=== PATIENT | male | born 1975 | race Caucasian/White ===

== ENCOUNTER 2016-08-10 01:38 | Inpatient (IN) | payer OTHER ==
--- NOTE | 2016-08-10 01:51 | PDOC ---
History of Present Illness - General History Source: Patient Exam Limitations: No Limitations - History of Present Illness Initial Comments: 08/10/16 02:07 The patient is a 40 year old male, with a significant past medical history of kidney stones and migraines, who presents to the emergency department complaining of back pain for approximately 4 days. The patient reports his pain has been going on for several days, but this morning when he woke up his pain was severe and localized to the left flank region. He reports his pain radiates into his left abdomen. He reports associated nausea, but denies any vomiting, diarrhea, or constipation. The patient reports he has a history of UTIs, his last being many years ago. He reports a history of kidney stones. He states his pain today is more similar to his kidney stone pain. He denies any dysuria, hematuria, frequency, or urgency. He denies any recent travel or heavy lifting. Allergies: Penicillins, sumatriptan, sumatriptan succinate Past Surgical History: Double hernia repair, Appendectomy (1997) Social History: Occasional smoker. No ETOH or drug use. PCP: Dr. Galina Delgado <Marina Carpenter - Last Filed: 08/10/16 06:11> - General History Source: Patient <[email or web address] aguirre - Last Filed: 08/13/16 19:52> - General Chief Complaint: Back Pain Stated Complaint: PAIN/LT SIDE Time Seen by Provider: 08/10/16 01:49 Past History <Marina Carpenter - Last Filed: 08/10/16 06:11> - Past Medical History Kidney Stones: Yes - Surgical History Abdominal Surgery: Yes (DOUBLE HERNIA REPAIR) Appendectomy: Yes (1987) - Immunization History Immunization Up to Date: Yes - Psycho/Social/Smoking Cessation Hx Anxiety: No Suicidal Ideation: No Smoking Status: Yes Smoking History: Never smoked Have you smoked in the past 12 months: No Number of Cigarettes Smoked Daily: 20 Cigars Per Day: 0 Information on smoking cessation initiated: No Hx Alcohol Use: No Drug/Substance Use Hx: No Substance Use Type: None <Patrick Dumas - Last Filed: 08/13/16 19:52> - Past Medical History Allergies/Adverse Reactions: Allergies Allergy/AdvReac Type Severity Reaction Status Date / Time Penicillins Allergy Verified 08/10/16 01:44 sumatriptan [From Imitrex] Allergy Verified 08/10/16 01:44 sumatriptan succinate Allergy Verified 08/10/16 01:44 [From Imitrex] Home Medications: Ambulatory Orders Tramadol HCl 50 mg PO Q4HWA #20 tablet 08/04/14 Review of Systems - Review of Systems Able to Perform ROS?: Yes Comments:: 08/10/16 02:08 CONSTITUTIONAL: Absent: fever, no chills, no fatigue EYES: Absent: visual changes ENT: Absent: ear pain, no sore throat CARDIOVASCULAR: Absent: chest pain, no palpitations RESPIRATORY: Absent: cough, no SOB GI: present: +left-sided abdominal pain Absent: no nausea, no vomiting, no constipation, no diarrhea GENITOURINARY: Present: +left flank pain Absent: dysuria, no frequency, no hematuria MUSCULOSKELETAL: Present: +back pain Absent: no arthralgia, no myalgia SKIN: Absent: rash NEURO: Absent: headache <Marina Carpenter - Last Filed: 08/10/16 06:11> *Physical Exam - Vital Signs Last Vital Signs Temp Pulse Resp BP Pulse Ox 98.6 F 89 22 138/64 98 08/10/16 01:44 08/10/16 01:44 08/10/16 01:44 08/10/16 01:44 08/10/16 01:44 - Physical Exam Comments: 08/10/16 02:09 GENERAL: Moderate distress. Well-appearing, well-nourished. HEENT: Normocephalic, atraumatic. PERRL, EOM intact. CARDIOVASCULAR: Normal S1, S2. Regular rate and rhythm. PULMONARY: Clear to auscultation bilaterally. ABDOMEN: Soft, non-distended, non-tender. MUSCULOSKELTAL: Mild left flank tenderness. EXTREMITIES: Normal ROM in all four extremities. No gross deformities. SKIN: Warm, dry. No rash NEUROLOGICAL: No focal neurological deficits. <Marina Carpenter - Last Filed: 08/10/16 06:11> - Vital Signs Last Vital Signs Temp Pulse Resp BP Pulse Ox 98.6 F 89 22 138/64 98 08/10/16 01:44 08/10/16 01:44 08/10/16 01:44 08/10/16 01:44 08/10/16 01:44 <Patrick Dumas - Last Filed: 08/13/16 19:52> Heart Score/ECG Review - ECG Intrepretation Comment:: 08/10/16 06:07 Vent. Rate: 61 bpm IMPRESSION: Normal sinus rhythm. Possible Anterior infarct. <Marina Carpenter - Last Filed: 08/10/16 06:11> ED Treatment Course - LABORATORY CBC & Chemistry Diagram: 08/10/16 01:53 08/10/16 01:53 - RADIOLOGY Radiograph Interpretation: 08/10/16 03:46 EXAM: CT Abdomen and Pelvis INTERPRETED BY: Dr. Sun REVIEWED BY: Dr. Dumas IMPRESSION: Obstructing calculus in the distal left ureter. <Marina Carpenter - Last Filed: 08/10/16 06:11> - LABORATORY CBC & Chemistry Diagram: 08/11/16 07:00 08/11/16 07:00 - RADIOLOGY Radiology Studies Ordered: Category Date Time Status SPIRAL- RENAL-STONE CT [CT] Stat CT Scan 08/10/16 01:46 Ordered <Patrick Dumas - Last Filed: 08/13/16 19:52> Medical Decision Making - Medical Decision Making 08/10/16 05:19 First call placed to Dr. Delgado at 05:20. Awaiting call back from Dr. Holt. Case discussed with Dr. Holt at 06:00. <Marina Carpenter - Last Filed: 08/10/16 06:11> - Medical Decision Making 08/13/16 19:51 Dr. Dumas: The scribe's documentation has been prepared under my direction and personally reviewed by me in its entirery. I confirm that the note above accurately reflects all work, treatment, procedures, and medical decision making performed by me. <Patrick Dumas - Last Filed: 08/13/16 19:52> *DC/Admit/Observation/Transfer - Attestations Scribe Attestion: 08/10/16 02:09 Documentation prepared by Marina Carpenter, acting as medical services coordinator for Patrick Dumas DO. <Marina Carpenter - Last Filed: 08/10/16 06:11> - Discharge Dispostion Admit: Yes <Patrick Dumas - Last Filed: 08/13/16 19:52> Diagnosis at time of Disposition: Renal colic on left side, Obstruction of kidney - Discharge Dispostion Disposition: HOME Condition at time of disposition: Stable - Referrals
[2016-08-10] MEDS ORDERED: SODIUM CHLORIDE 1,000 ML IV STA (01:52)
[2016-08-10] MEDS ORDERED: KETOROLAC TROMETHAMINE 30 MG/1 ML VIAL IVPUSH ONE (01:52)
[2016-08-10] MEDS ORDERED: ONDANSETRON 4 MG/2 ML VIAL IVPUSH STA (01:52)
[2016-08-10] MEDS ORDERED: ONDANSETRON 4 MG/2 ML VIAL ONE (01:58)
[2016-08-10] MEDS ORDERED: KETOROLAC TROMETHAMINE 30 MG/1 ML VIAL ONE (01:58)
[2016-08-10 02:17] LABS: URINE APPEARANCE CLEAR; URINE BILIRUBIN NEGATIVE (NEGATIVE); URINE COLOR LTYELLOW; URINE GLUCOSE (UA) NEGATIVE (NEGATIVE); URINE KETONE NEGATIVE (NEGATIVE); URINE LEUK ESTERASE NEGATIVE (NEGATIVE); URINE NITRITE NEGATIVE (NEGATIVE); URINE PROTEIN NEGATIVE (NEGATIVE); URINE UROBILINOGEN NEGATIVE E.U./dl (0.2-1.0)
[2016-08-10 02:21] LABS: URINE BLOOD 1+ (NEGATIVE)
[2016-08-10 02:22] LABS: URINE BACTERIA RARE /hpf (NONE SEEN); URINE RBC 24 /hpf (0-3); URINE WBC 1 /hpf (3-5)
[2016-08-10] MEDS ORDERED: HYDROmorphone HCL CARPU-JECT 1 MG/1 ML DISP.SYRIN IVPUSH ONE ×2 (02:23→04:08)
[2016-08-10] MEDS ORDERED: HYDROmorphone HCL CARPU-JECT 1 MG/1 ML DISP.SYRIN ONE ×2 (02:23→04:07)
[2016-08-10 02:29] LABS: BASOPHIL 0.6 % (0-2.0); EOSINOPHIL 2.9 % (0-4.5); MCH 28.9 pg (25.7-33.7); MCHC 33.5 g/dl (32.0-35.9); MEAN CELL VOLUME 86.2 fl (80-96); MEAN PLT VOLUME 9.2 fl (7.5-11.1); NEUTROPHILS 42.5 % (42.8-82.8); PLATELET COUNT 174 K/MM3 (134-434); RDW 13.3 % (11.9-15.9); WHITE BLOOD COUNT 10.6 K/mm3 (4.0-10.0)
[2016-08-10 02:43] LABS: ALBUMIN 3.7 g/dl (3.4-5.0); ANION GAP 10 (8-16); CALCIUM 8.5 mg/dL (8.5-10.1); CO2 26 mmol/L (21-32); CREATININE 0.9 mg/dL (0.7-1.3); GLUCOSE,RANDOM 89 mg/dL (74-106); SGOT/AST 23 U/L (15-37); SGPT/ALT 33 U/L (12-78)
[2016-08-10 02:45] LABS: ALK PHOS 92 U/L (45-117); BILIRUBIN,TOTAL 0.5 mg/dL (0.2-1.0); TOT PROT 6.7 g/dl (6.4-8.2)
[2016-08-10] MEDS ORDERED: morphine CARPU-JECT 2 MG/1 ML DISP.SYRIN IVPUSH PRN (09:29)
[2016-08-10] MEDS ORDERED: ACETAMINOPHEN 325 MG TABLET (FP) PO PRN (09:29)
[2016-08-10] MEDS ORDERED: ONDANSETRON 4 MG/2 ML VIAL IVPB PRN (09:29)
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
[2016-08-10] MEDS: D5-1/2NS+20 MEQ KCL - 1,000 ML IV SCH ×2 (10:21→20:47)
[2016-08-10] MEDS ORDERED: IBUPROFEN 600 MG TABLET (FP) PO ONE ×2 (11:57→11:59)
[2016-08-10] MEDS ORDERED: IBUPROFEN 600 MG TABLET (FP) PO PRN (12:05)
--- NOTE | 2016-08-10 14:18 | EKG ---
Test Reason : Blood Pressure : / mmHG Vent. Rate : 061 BPM Atrial Rate : 061 BPM P-R Int : 156 ms QRS Dur : 098 ms QT Int : 416 ms P-R-T Axes : 049 063 065 degrees QTc Int : 418 ms NORMAL SINUS RHYTHM POSSIBLE ANTERIOR INFARCT , AGE UNDETERMINED ABNORMAL ECG NO PREVIOUS ECGS AVAILABLE Confirmed by BIA QUINONES MD ([id number]) on 08/10/2016 2:18:10 PM Referred By: Confirmed By:BIA QUINONES MD
[2016-08-10 16:53] VITALS: BMI 43.6
[2016-08-11] MEDS: D5-1/2NS+20 MEQ KCL - 1,000 ML IV SCH (06:21)
[2016-08-11 08:04] LABS: BASOPHIL 0.5 % (0-2.0); EOSINOPHIL 3.9 % (0-4.5); MCH 29.7 pg (25.7-33.7); MCHC 34.6 g/dl (32.0-35.9); MEAN PLT VOLUME 8.7 fl (7.5-11.1); NEUTROPHILS 59.2 % (42.8-82.8); PLATELET COUNT 152 K/MM3 (134-434); RDW 13.1 % (11.9-15.9)
[2016-08-11 08:11] LABS: ANION GAP 7 (8-16); CALCIUM 8.2 mg/dL (8.5-10.1); CO2 29 mmol/L (21-32); CREATININE 0.7 mg/dL (0.7-1.3); GLUCOSE,RANDOM 107 mg/dL (74-106)
--- NOTE | 2016-08-11 10:51 | DS ---
Physical Examination Vital Signs: Vital Signs Temperature 98.4 F 08/11/16 06:00 Pulse Rate 66 08/11/16 06:00 Respiratory Rate 18 08/11/16 06:00 Blood Pressure 126/70 08/11/16 06:00 O2 Sat by Pulse Oximetry (%) 95 08/10/16 15:00 Labs: CBC, BMP 08/11/16 07:00 08/11/16 07:00 Discharge Summary Reason For Visit: OBSTRUCTIVE KIDNEY STONE Current Active Problems Obstruction of kidney (Acute) Renal colic on left side (Acute) Condition: Stable - Instructions Referrals: Galina Delgado MD [Primary Care Provider] - - Home Medications Comprehensive Discharge Medication List: Ambulatory Orders Bismuth Subsalicylate [Kaopectate] 262 mg PO DAILY 08/03/14 Tramadol HCl 50 mg PO Q4HWA #20 tablet 08/04/14
[2016-08-11 11:26] VITALS: BP 143/76; PULSE 74; TEMP 98.1
== END 2016-08-11 11:06 | disposition home or self-care (01) | DRG 700 ==
LOC: JER 01:38 → JERBED 05:44 → UNDOADMIN 05:47 → J5S 14:34
PROVIDERS: ADMIT Internal Medicine; ATTEND Internal Medicine
DX: N28.89 Other specified disorders of kidney and ureter (principal); N23 Unspecified renal colic
CPT/HCPCS: 36415; 71010-TC; 74176; 80048; 80053; 81003; 81015; 85025; 87086; 93005; 93010; 99285-25

== ENCOUNTER 2017-10-30 08:44 | Emergency (ER) | payer OTHER ==
[2017-10-30 08:55] VITALS: BP 131/83; PULSE 77; TEMP 99.2; BMI 36.6
[2017-10-30] MEDS ORDERED: BACITRACIN 15 GM TUBE TOPICAL OINTMENT ONE (09:17)
[2017-10-30] MEDS ORDERED: DIPHTH,PERTUSS(ACELL),TET 0.5 ML DISP.SYRIN IM ONE (09:25)
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
[2017-10-30] MEDS ORDERED: BACITRACIN 15 GM TUBE TOPICAL OINTMENT TP ONE (09:33)
== END 2017-10-30 09:35 | disposition home or self-care (01) ==
LOC: JERFT 08:44
PROC: 3E0234Z Introduction of Serum, Toxoid and Vaccine into Muscle, Percutaneous Approach (ICD-10-PCS; principal; 2017-10-30)
DX: S50.872A Other superficial bite of left forearm, initial encounter (principal); S50.871A Other superficial bite of right forearm, initial encounter; Y04.1XXA Assault by human bite, initial encounter; Y93.89 Activity, other specified; Y92.198 Other place in other specified residential institution as the place of occurrence of the external cause; Y99.0 Civilian activity done for income or pay
CPT/HCPCS: 90715; 99281-25

== ENCOUNTER 2018-10-27 12:38 | Emergency (ER) | payer OTHER ==
[2018-10-27 12:43] VITALS: BP 132/89; PULSE 86; TEMP 98.5; BMI 38.7
--- NOTE | 2018-10-27 13:34 | PDOC ---
History of Present Illness - General Chief Complaint: Rectal Bleed Stated Complaint: ABD PAIN/ BLOOD IN STOOL - History of Present Illness Initial Comments: 10/27/18 14:35 42 y/o/m with PMHx of hemorrhoids here for abd pain and blood in his stool. He states he has had intermittent abd pain for the last 3-4 weeks that temporarily improves with bowel movements. He states that for the last 2 days he has had increased blood in his stool and he has noticed blood clots when wiping. He has had hemorrhoids since his teens but they have worsened over the last year. He states his pain is currently a 8/10. When he has bowel movements he does have to strain and feels lightheaded. He had an additional episode of lightheadedness while sitting in his car and he felt dizzy and felt his heart racing but this episode self resolved. He has not had any additional similar episodes. He has been taking Ibuprofen for his abdominal pain with improvement and applies lidocaine cream to his hemorrhoids which improves his pain as well. His grandmother was diagnosed with colon cancer at age 41. He had a colonoscopy and endoscopy at age 35 which were negative and another colonoscopy 2 years ago which was negative. He is not followed by a GI doctor and does not recall the name of the doctor who did his colonoscopy and endoscopy. He denies any chest pain, SOB, nausea, vomiting, headache, or other symptoms. Social Hx: past history of 1 pack per day tobacco use, quit 1 month ago, now admits to vaping. denies alcohol and other illicit drug use. Surg Hx: appendectomy, tonsillectomy in his teens Medical Hx: HDL, anxiety Family Hx: grandmother diagnosed with colon cancer at age 41 Medications: Lipitor, Paxil Past History - Past Medical History Allergies/Adverse Reactions: Allergies Allergy/AdvReac Type Severity Reaction Status Date / Time Penicillins Allergy Verified 10/27/18 12:40 sumatriptan [From Imitrex] Allergy Verified 10/27/18 12:40 sumatriptan succinate Allergy Verified 10/27/18 12:40 [From Imitrex] Home Medications: Ambulatory Orders Ibuprofen 600 mg PO Q8H PRN #12 tablet 10/30/17 Sulfamethoxazole/Trimethoprim [Bactrim Ds Tablet] 1 each PO BID 5 Days #10 tablet 10/30/17 Lidocaine 2% Jelly [Xylocaine 2% Jelly -] 1 applic TP DAILY #1 tube 10/27/18 COPD: No DVT: No Kidney Stones: Yes - Surgical History Abdominal Surgery: Yes (DOUBLE HERNIA REPAIR) Appendectomy: Yes (1987) - Immunization History Immunization Up to Date: Yes - Suicide/Smoking/Psychosocial Hx Smoking Status: Yes Smoking History: Former smoker Have you smoked in the past 12 months: Yes Number of Cigarettes Smoked Daily: 15 Cigars Per Day: 0 Information on smoking cessation initiated: Yes 'Breaking Loose' booklet given: 10/30/17 Hx Alcohol Use: No Drug/Substance Use Hx: No Substance Use Type: None Hx Substance Use Treatment: No Review of Systems - Review of Systems Constitutional: No: Chills, Weakness HEENTM: No: Blurred Vision, Nose Congestion Respiratory: No: Cough, Shortness of Breath Cardiac (ROS): Yes: Lightheadedness. No: Chest Pain, Palpitations ABD/GI: Yes: Blood Streaked Bowels, Diarrhea, Abdominal cramping, Other ( increased urgency for bowel movements). No: Abdominal Distended, Constipated, Nausea, Vomiting : No: Dysuria, Hematuria Musculoskeletal: No: Back Pain Integumentary: No: Flushing, Rash Neurological: No: Headache, Numbness, Dizziness Psychiatric: Yes: Anxiety *Physical Exam - Vital Signs Last Vital Signs Temp Pulse Resp BP Pulse Ox 98.5 F 86 18 132/89 99 10/27/18 12:41 10/27/18 12:41 10/27/18 12:41 10/27/18 12:41 10/27/18 12:41 - Physical Exam General Appearance: Yes: Mild Distress HEENT: positive: EOMI Neck: positive: Supple. negative: Tender, Lymphadenopathy (R), Lymphadenopathy (L) Respiratory/Chest: positive: Lungs Clear, Normal Breath Sounds. negative: Accessory Muscle Use, Crackles, Rales, Rhonchi Cardiovascular: positive: Regular Rhythm, Regular Rate, S1, S2 Gastrointestinal/Abdominal: positive: Normal Bowel Sounds, Soft. negative: Tender, Distended, Guarding Rectal Exam: positive: normal rectal tone, hemorrhoids (no thrombosed/necrotic hemorrohoids noted.), other (no gross blood on rectal exam) Extremity: positive: Normal Capillary Refill Integumentary: positive: Normal Color Neurologic: positive: Fully Oriented, Alert, Motor Strength 5/5 ED Treatment Course - LABORATORY CBC & Chemistry Diagram: 10/27/18 17:15 10/27/18 14:10 Medical Decision Making - Medical Decision Making 10/27/18 14:50 42 y/o/m with PMHx of hemorrhoids here for abd pain and blood in his stool. He states he has had intermittent abd pain for the last 3-4 weeks that temporarily improves with bowel movements. He states that for the last 2 days he has had increased blood in his stool and he has noticed blood clots when wiping. Hemorrhoids noted on rectal exam, no thrombosed hemorrhoids noted. No gross blood on rectal exam CBC, CMP, UA, type and screen, coags ordered Tylenol and lidocaine cream ordered for pain relief. If initial CBC is normal, will repeat CBC in 4 hours to monitor. 10/27/18 16:[address] Holt, covering for Dr. Dickerson. On board with plan to monitor patient and D/C with follow up if repeat CBC is stable and patient has no symptoms in ED. *DC/Admit/Observation/Transfer Diagnosis at time of Disposition: Hemorrhoids - Discharge Dispostion Disposition: HOME Condition at time of disposition: Good Decision to Admit order: No - Prescriptions Prescriptions: Lidocaine 2% Jelly [Xylocaine 2% Jelly -] 1 applic TP DAILY #1 tube - Referrals Referrals: Galina Delgado MD [Primary Care Provider] - Wil Lane MD [Staff Physician] - - Patient Instructions Additional Instructions: If you have worsening pain, increased bleeding, or dizziness return to the ER. Follow up with your primary care doctor in the next week. Follow up with a GI doctor for your hemorrhoids. - Post Discharge Activity
[2018-10-27] MEDS ORDERED: ACETAMINOPHEN 325 MG TABLET (FP) PO ONE (14:08)
[2018-10-27] MEDS ORDERED: LIDOCAINE HCL 5% TOP OINTMENT 50 GM TUBE TP ONE (14:12)
--- NOTE | 2018-10-27 14:29 | PDOC ---
Attending Attestation - Resident Resident Name: Demetri Galan - ED Attending Attestation I have performed the following: I have examined & evaluated the patient, The case was reviewed & discussed with the resident, I agree w/resident's findings & plan, Exceptions are as noted - HPI HPI: 10/27/18 14:28 42yo M hx hemorrhoids, HL presents with 1 month abd pain intermittently as well as 2 episodes of bright red clots per rectum since yesterday. Pt reports hemorrhoids since he was a teen and states he wipes bright red blood on toilet paper with every bowel movement. He notes, however, that he has never wiped clots before. Denies filling up the toilet with blood. Reports lightheadedness sometimes when he is straining. At this time, denies lightheadedness, abd pain, N/V/D. Denies fevers, chills, urinary symptoms. Reports colonoscopy a few years ago which was normal. Denies CP, SOB, dizziness, focal weakness/numbness. Does not take blood thinners. - Physicial Exam PE: 10/27/18 16:05 GENERAL: Awake, alert, and fully oriented, in no acute distress HEAD: No signs of trauma EYES: PERRLA, EOMI, sclera anicteric, conjunctiva clear ENT: Auricles normal inspection, hearing grossly normal, nares patent, oropharynx clear without exudates. Moist mucosa NECK: Normal ROM, supple, no lymphadenopathy, JVD, or masses LUNGS: Breath sounds equal, clear to auscultation bilaterally. No wheezes, and no crackles HEART: Regular rate and rhythm, normal S1 and S2, no murmurs, rubs or gallops ABDOMEN: Soft, nontender, normoactive bowel sounds. No guarding, no rebound. No masses : as per Dr. Galan's note EXTREMITIES: Normal range of motion, no edema. No clubbing or cyanosis. No cords, erythema, or tenderness NEUROLOGICAL: Normal speech, cranial nerves intact, equal strength and sensation b/l SKIN: Warm, Dry, normal turgor, no rashes or lesions noted. - Medical Decision Making 10/27/18 15:38 42yo M hx hemorrhoids presents to the ED with bright red clots per rectum. Vitals wnl. Exam with no active bleeding, brown non bloody stool in vault. Likely hemorrhoidal vs lower GIB Plan to check labs, observe in ED for 6 hours Labs thus far with normal hgb, will rpt in 4 hours Glucose low, given sandwich Will defer on imaging at this time as pt has benign abd exam Case discussed with Dr. Holt (covering for Dr. Dickerson, pt's PMD) who is in agreement with our plan 10/27/18 18:14 Rpt CBC stable No further episodes of bleeding All results discussed with pt, he feels well to go home Will f/u with Dr. Delgado in 2 days Pt clincally stable for DC home I discussed the physical exam findings, ancillary test results and final diagnoses with the patient. I answered all of the patient's questions. The patient was satisfied with the care received and felt comfortable with the discharge plan and treatment plan. The patient will call their primary care physician within 24 hours to arrange follow-up and will return to the Emergency Department with any new, persistent or worsening symptoms.
[2018-10-27] MEDS ORDERED: ACETAMINOPHEN 325 MG TABLET (FP) ONE (14:33)
[2018-10-27 14:49] LABS: BASO % 0.4 % (0-2.0); EOS % 2.8 % (0-4.5); HEMATOCRIT 42.7 % (35.4-49); HEMOGLOBIN 14.6 GM/dL (11.7-16.9); LYMPH % 31.6 % (8-40); MCH 29.9 pg (25.7-33.7); MCHC 34.2 g/dl (32.0-35.9); MEAN CELL VOLUME 87.2 fl (80-96); MEAN PLT VOLUME 8.9 fl (7.5-11.1); NEUT % 59.2 % (42.8-82.8); PLATELET COUNT 142 K/MM3 (134-434); RDW 12.9 % (11.9-15.9); WHITE BLOOD COUNT 8.5 K/mm3 (4.0-10.0)
[2018-10-27 15:06] LABS: INR 1.03 (0.83-1.09); PROTHROMBIN TIME (PATIENT) 12.1 SEC (9.7-13.0)
[2018-10-27 15:18] LABS: ALBUMIN 3.6 g/dl (3.4-5.0); BILIRUBIN,TOTAL 0.5 mg/dL (0.2-1); BLOOD UREA NITROGEN 9.2 mg/dL (7-18); CREATININE 0.7 mg/dL (0.55-1.3); POTASSIUM 3.8 mmol/L (3.5-5.1); TOT PROT 6.4 g/dl (6.4-8.2)
[2018-10-27 15:33] LABS: URINE APPEARANCE CLEAR; URINE BILIRUBIN NEGATIVE (NEGATIVE); URINE COLOR YELLOW; URINE GLUCOSE (UA) NEGATIVE (NEGATIVE); URINE KETONE NEGATIVE (NEGATIVE); URINE LEUK ESTERASE NEGATIVE (NEGATIVE); URINE NITRITE NEGATIVE (NEGATIVE); URINE PROTEIN NEGATIVE (NEGATIVE); URINE UROBILINOGEN 0.2 mg/dL (0.2-1.0)
[2018-10-27] MEDS ORDERED: LIDOCAINE HCL 2% JELLY 10 ML CARTRIDGE ONE (15:39)
[2018-10-27 17:43] LABS: HEMATOCRIT 42.5 % (35.4-49); HEMOGLOBIN 14.4 GM/dL (11.7-16.9); MCH 29.6 pg (25.7-33.7); MCHC 33.9 g/dl (32.0-35.9); MEAN CELL VOLUME 87.2 fl (80-96); MEAN PLT VOLUME 9.3 fl (7.5-11.1); PLATELET COUNT 150 K/MM3 (134-434); RBC 4.87 M/mm3 (4.00-5.60); RDW 12.6 % (11.9-15.9); WHITE BLOOD COUNT 9.2 K/mm3 (4.0-10.0)
== END 2018-10-27 18:33 | disposition home or self-care (01) ==
LOC: JER 12:38
DX: K64.9 Unspecified hemorrhoids (principal)
CPT/HCPCS: 36415; 80053; 81003; 82272; 85025; 85027; 85610; 86850; 86900; 86901; 99282-25

== ENCOUNTER 2018-12-19 05:04 | Day surgery (SDC) | payer OTHER ==
[2018-12-18 09:19] VITALS: BMI 36.7
--- NOTE | 2018-12-19 12:11 | HP ---
History & Physical Update - History History: No Change - Physical Physical: No Change - Assessment Assessment: No Change - Plan Plan: No Change (H & P done on 11/20/18)
[2018-12-19] MEDS ORDERED: LIDOCAINE HCL/PF 2% SDV 5ML VIAL ONE (12:21)
[2018-12-19] MEDS ORDERED: PROPOFOL 20 ML ONE ×2 (12:21)
[2018-12-19] MEDS ORDERED: MIDAZOLAM HCL 2 MG/2 ML SINGLE DOSE VIAL ONE ×2 (12:22→12:44)
[2018-12-19] MEDS ORDERED: CLINDAMYCIN PHOSPHATE 600 MG/4 ML VIAL ONE ×2 (12:41)
[2018-12-19] MEDS ORDERED: LIDOCAINE HCL 1% EPINEPHRINE 1:200,000 30 ML VIAL (PF) ONE (12:46)
[2018-12-19] MEDS ORDERED: BUPIVACAINE HCL/PF 0.5% (5 MG/ML) 30 ML VIAL IJ ONE ×4 (12:46→13:42)
[2018-12-19] MEDS ORDERED: CLINDAMYCIN 900 MG PREMIX BAG IVPB ONE (12:47)
[2018-12-19] MEDS ORDERED: LIDOCAINE HCL 0.5% EPINEPHRINE 1:200,000 50 ML VIAL IJ ONE ×2 (13:01)
[2018-12-19] MEDS ORDERED: DEXAMETHASONE SOD PHOSPHATE 4 MG/1 ML VIAL ONE (13:11)
[2018-12-19] MEDS ORDERED: KETOROLAC TROMETHAMINE 30 MG/1 ML VIAL IVPUSH ONE (14:04)
[2018-12-19] MEDS ORDERED: ONDANSETRON 4 MG/2 ML VIAL IVPUSH PRN (14:04)
[2018-12-19] MEDS ORDERED: oxyCODONE HCL 5 MG TABLET PO PRN (14:04)
[2018-12-19] MEDS ORDERED: LACTATED RINGERS SOLUTION 1,000 ML IV SCH (14:15)
[2018-12-19 18:03] VITALS: BP 131/84; PULSE 57; TEMP 97.8
--- NOTE | 2018-12-20 13:10 | OP ---
DATE OF OPERATION: 12/19/2018 PROCEDURE: Examination under anesthesia and sacral hemorrhoidectomy. PREOPERATIVE DIAGNOSIS: Stage IV three-column hemorrhoids. POSTOPERATIVE DIAGNOSIS: Stage IV three-column hemorrhoids. SURGEON: Pedrito Bonilla MD ANESTHESIA: Spinal. FINDINGS AND PROCEDURE: This is a 43-year-old male who presents with longstanding history of prolapsing hemorrhoids associated with pain and occasional bleeding. Patient had a preoperative colonoscopy, which revealed no malignant colonic lesion. On physical exam, patient has a 3 x 2-cm right anterior prolapsing hemorrhoid, a 3 x 2 right posterior prolapsing hemorrhoid, and a 1 x 1 left lateral polypoid prolapsing hemorrhoid, so patient was advised staple hemorrhoidectomy and possible of the polypoid hemorrhoid. Consent was obtained after discussing the risks, benefits, and alternatives of the procedure. Patient was brought to the operating room and placed in sitting position. Spinal anesthesia was administered. Patient was then placed in extended lithotomy position. The perineum was prepped and draped in the usual sterile fashion. Using lidocaine 1% with epinephrine, perianal anesthesia was administered. The anoscope was fitted, and the distal rectum was carefully inspected and noted to be free of other lesions. The anal dilator was inserted together with the anoscope, and the anoscope was anchored to the anal skin with silk 0 suture toward the . Anoscope was inserted, and pursestring suture of the distal rectum over the base of the internal hemorrhoids was identified. A pursestring suture 1 cm above the anorectal junction was then applied using Prolene 2-0. After this, the PPH03 stapler was deployed with the anvil inserted proximal to the pursestring. The pursestring was then tightened, and the PPH03 was closed. After it was determined that there was good tissue purchase, the PPH03 was fired and held for about 30 seconds for hemostasis. This was opened, and a 2-cm cuff of rectal mucosa was removed. The rectum was carefully inspected and was noted to be free of active bleeding. The left lateral wall of the right posterior column hemorrhoids were removed due to presence of multiple skin tags by applying a [id number] suture to the base and excising hemorrhoid using Bovie cautery. The wounds were closed with a continuous Polysorb 2-0 suture. Afterwards, a Xeroform was inserted into the anal canal for further hemostasis. Patient was then placed back in supine position and transferred to the post anesthesia care unit in satisfactory condition. Estimated blood loss was about 20 mL. Wound class contaminated. Patient received clindamycin prior to the start of the procedure. Dusty [id number]
--- NOTE | 2018-12-23 17:07 | PATH ---
Surgical Pathology Report Patient Name: ROSSI MOORE [facility] [place]. Rec. #: [id number] /Age/Gender: 1975 (Age: 43) / M Account: [id number] Location: [facility] Taken: 12/19/2018 Received: 12/22/2018 Reported: 12/23/2018 Physicians: Pedrito Bonilla M.D. Specimen(s) Received HEMORROIDS Clinical History Stage IV hemorrhoids Final Diagnosis HEMORRHOIDS, HEMORRHOIDECTOMY: POLYPOID SQUAMOUS AND SQUAMOCOLUMNAR MUCOSA WITH DILATED THICK WALLED CONGESTED SUBMUCOSAL VESSELS CONSISTENT WITH HEMORRHOIDS. Electronically Signed Radha Foster M.D. Gross Description Received in formalin labeled "hemorrhoids," is a 6.8 x 2.0 x 0.8 cm craig-brown, hemorrhagic portion of mucosal tissue. Also received within the same container is a 3.0 x 1.7 x 0.8 cm aggregate of craig portions of skin. [employer]oration [employer] sections are submitted in one cassette. /12/22/2018 saudi/12/22/2018
== END 2018-12-19 17:55 | disposition home or self-care (01) ==
LOC: JASU-SURG 05:04
PROVIDERS: ATTEND Surgery
PROC: 06BY0ZC Excision of Hemorrhoidal Plexus, Open Approach (ICD-10-PCS; principal; 2018-12-19 12:35)
DX: K64.3 Fourth degree hemorrhoids (principal)
CPT/HCPCS: 88304-TC; 94760

== ENCOUNTER 2018-12-19 23:06 | Emergency (ER) | payer OTHER ==
[2018-12-19 23:13] VITALS: BP 136/80; PULSE 105; TEMP 98.5; BMI 36.7
--- NOTE | 2018-12-20 00:31 | PDOC ---
History of Present Illness - General Chief Complaint: Pain Stated Complaint: POST-OP COMPLICATION,PAIN Time Seen by Provider: 12/20/18 00:30 History Source: Patient Exam Limitations: No Limitations - History of Present Illness Initial Comments: 12/20/18 00:30 43M presenting s/p hemorrhoidectomy on 7AM 12/19/18 complaining of rectal pain. Had hemorrhoidectomy at 2PM with Dr. Pedrito Bonilla. Had local block, went home in mild pain that progressively worsened as block wore off. Patient has taken 2x Percocets last 8PM, has not tried sitz baths or lidocaine jelly because he was told not to wet the region. Pain is 10/10 and constant, has had renal stones in the past and this pain is about the same level. Denies chest pain, SOB, abd pain, urinary sx, flank pain. Has had BM today without significant constipation. Denies fever, chills, active rectal bleeding. Past History - Past Medical History Allergies/Adverse Reactions: Allergies Allergy/AdvReac Type Severity Reaction Status Date / Time Penicillins Allergy Severe Verified 12/18/18 09:21 sumatriptan [From Imitrex] Allergy Severe Verified 12/18/18 09:36 sumatriptan succinate Allergy Severe Verified 12/18/18 09:21 [From Imitrex] Home Medications: Ambulatory Orders Ibuprofen 600 mg PO Q8H PRN #12 tablet 10/30/17 Lidocaine 2% Jelly [Xylocaine 2% Jelly -] 1 applic TP DAILY #1 tube 10/27/18 Atorvastatin Ca [Lipitor] 10 mg PO DAILY 12/18/18 Linaclotide [Linzess] 72 mcg PO DAILY 12/18/18 Paroxetine HCl [Paxil] 30 mg PO DAILY 12/18/18 metroNIDAZOLE [Flagyl -] 250 mg PO DAILY 12/19/18 Anemia: No Asthma: No Cancer: No Cardiac Disorders: No CVA: No COPD: No CHF: No DVT: No Dementia: No Diabetes: No GI Disorders: Yes (IBS) Disorders: No HTN: No Hypercholesterolemia: Yes Kidney Stones: Yes Liver Disease: No Seizures: No Thyroid Disease: No - Surgical History Abdominal Surgery: Yes (DOUBLE HERNIA REPAIR) Appendectomy: Yes (1987) - Immunization History Immunization Up to Date: Yes - Psycho Social/Smoking Cessation Hx Smoking Status: Yes Smoking History: Never smoked Have you smoked in the past 12 months: No Number of Cigarettes Smoked Daily: 0 If you are a former smoker, when did you quit?: 05/18/18 Cigars Per Day: 0 Information on smoking cessation initiated: No 'Breaking Loose' booklet given: 10/30/17 Hx Alcohol Use: No Drug/Substance Use Hx: No Substance Use Type: None, Marijuana Hx Substance Use Treatment: Yes (marijuana) Review of Systems - Review of Systems Constitutional: No: Symptoms Reported HEENTM: No: Symptoms Reported Respiratory: No: Symptoms reported Cardiac (ROS): No: Symptoms Reported ABD/GI: Yes: Other (rectal pain) : No: Symptoms Reported Musculoskeletal: No: Symptoms Reported Integumentary: No: Symptoms Reported Neurological: No: Symptoms reported Endocrine: No: Symptoms Reported Hematologic/Lymphatic: No: Symptoms Reported All Other Systems: Reviewed and Negative *Physical Exam - Vital Signs Last Vital Signs Temp Pulse Resp BP Pulse Ox 98.5 F 105 H 17 136/80 100 12/19/18 23:10 12/19/18 23:10 12/19/18 23:10 12/19/18 23:10 12/19/18 23:10 - Physical Exam General Appearance: Yes: Nourished, Appropriately Dressed, Moderate Distress HEENT: positive: EOMI, Normal Voice, Symmetrical, Hearing Grossly Normal. negative: Scleral Icterus (R), Scleral Icterus (L) Neck: positive: Normal Thyroid, Supple. negative: Tender, Rigid, Lymphadenopathy (R), Lymphadenopathy (L) Respiratory/Chest: positive: Lungs Clear, Normal Breath Sounds. negative: Chest Tender, Respiratory Distress, Crackles, Rales, Rhonchi, Stridor, Wheezing Cardiovascular: positive: Regular Rhythm, Regular Rate Gastrointestinal/Abdominal: positive: Normal Bowel Sounds, Flat, Soft. negative : Tender, Guarding, Rebound Rectal Exam: positive: other (inspection reveals healing surgical incisions to posterior anal rim with some serosanguinous discharge, no pus or krishan bleeding. ) Musculoskeletal: positive: Normal Inspection. negative: CVA Tenderness Extremity: positive: Normal Capillary Refill, Normal Inspection, Normal Range of Motion Integumentary: positive: Normal Color, Dry, Warm Neurologic: positive: Alert, Normal Mood/Affect, Normal Response Medical Decision Making - Medical Decision Making 12/20/18 00:30 43M presenting s/p hemorrhoidectomy on 7AM 12/19/18 complaining of rectal pain. Patient has taken 2x Percocets last 8PM, has not tried sitz baths or lidocaine jelly because he was told not to wet the region. Pain is 10/10 and constant, has had renal stones in the past and this pain is about the same level. Denies chest pain, SOB, abd pain, urinary sx, flank pain. Has had BM today without significant constipation. Denies fever, chills, active rectal bleeding. Rectal exam shows healing per-rectal region with scant serosanguinous fluid, no pus or active bleeding notable. Abd soft, non-tender, no flank pain. Heart exam RRR no MGR Lungs CTAB No concern for worse pathology other than expected post-op pain. Giving patient 2mg IM Dilaudid for pain control. 12/20/18 01:10 Pain improved with DIlaudid. Dispo home with recommendation to do sitz baths and lidocaine jelly as instructed. Patient taking taxi home. Discharge - Discharge Information Problems reviewed: Yes Clinical Impression/Diagnosis: S/P hemorrhoidectomy, Rectal pain Condition: Stable Disposition: HOME - Admission No - Follow up/Referral Referrals: Pedrito Bonilla MD [Primary Care Provider] - - Patient Discharge Instructions Patient Printed Discharge Instructions: DI for Hemorrhoidectomy Additional Instructions: Today you were evaluated for pain after your hemorroidectomy yesterday morning. Your pain is entirely a side effect of the procedure. We gave you a medication called Dilaudid for the pain, but this will only relieve it temporarily. When you return home, please use sitz baths but filling a bathtub with 6 inches of soapy water and sitting in it. Apply lidocaine jelly on the region that hurts using gloves. Please follow-up with Dr. Bonilla as scheduled. If you experience worsening rectal pain, uncontrollable bleeding or pus from the anus, abdominal pain, fever, chest pain, nausea, vomiting, or any other new or concerning symptoms, please return to the closest emergency room. - Post Discharge Activity
[2018-12-20] MEDS ORDERED: HYDROmorphone HCL CARPU-JECT 2 MG/1 ML DISP.SYRIN IM ONE (01:14)
[2018-12-20] MEDS ORDERED: HYDROmorphone HCl 2 MG/ML VIAL ONE (01:17)
--- NOTE | 2018-12-20 01:25 | PDOC ---
Documentation entered by Shraddha Mobley SCRIBE, acting as scribe for Richardson Brandon MD. Richardson Brandon MD: This documentation has been prepared by the Itz garner Adrianna, SCRIBE, under my direction and personally reviewed by me in its entirety. I confirm that the documentation accurately reflects all work, treatment, procedures, and medical decision making performed by me. Attending Attestation - Resident Resident Name: Everett Palacios - ED Attending Attestation I have performed the following: I have examined & evaluated the patient, The case was reviewed & discussed with the resident, I agree w/resident's findings & plan, Exceptions are as noted - HPI HPI: 43 y.o M, with PMH of hemorrhoids (s/p hemorrhoidectomy this morning this morning), HLD, and anxiety, presenting with rectal pain. Patient complains of constant pain since his hemorrhoidectomy this morning with Dr. Bonilla. He has taken 2 percocet without any relief of symptoms. Denies any blood coming from the rectum. Allergies: Penicillins, sumatriptan, sumatriptan succinate Surgical History: Appendectomy, tonsillectomy Social History: Former smoker (quit a few months ago). Vaping. Denies EtOH or illicit drug use - Physicial Exam PE: 12/20/18 01:23 Patient's awake and alert, well-nourished, in severe distress cta rrr abd-soft, nt, nd pr: no erythema/induration/bleeding - Medical Decision Making 12/20/18 01:24 Patient is a 43-year-old male status post stage IV hemorrhoidectomy earlier today presents with severe pain. Patient is afebrile with no evidence of acute bleeding or infection. Will administer IM Dilaudid for pain control. Advised patient to apply lidocaine gel and sits baths as instructed. Will discharge.
== END 2018-12-20 01:52 | disposition home or self-care (01) ==
LOC: JER 23:06
PROC: 3E023NZ Introduction of Analgesics, Hypnotics, Sedatives into Muscle, Percutaneous Approach (ICD-10-PCS; principal; 2018-12-19)
DX: G89.18 Other acute postprocedural pain (principal); Z98.890 Other specified postprocedural states; K91.89 Other postprocedural complications and disorders of digestive system; E78.00 Pure hypercholesterolemia, unspecified; Z87.442 Personal history of urinary calculi; Z87.19 Personal history of other diseases of the digestive system
CPT/HCPCS: 99282-25

== ENCOUNTER 2020-06-08 20:16 | Emergency (ER) | payer OTHER ==
[2020-06-08 20:23] VITALS: BMI 31.5
[2020-06-08 21:15] LABS: BASO % 0.8 % (0-2.0); EOS % 2.8 % (0-4.5); HEMATOCRIT 42.5 % (35.4-49); HEMOGLOBIN 14.6 GM/dL (11.7-16.9); LYMPH % 39.2 % (8-40); MCH 30.7 pg (25.7-33.7); MCHC 34.3 g/dl (32.0-35.9); MEAN CELL VOLUME 89.4 fl (80-96); MEAN PLT VOLUME 9.6 fl (7.5-11.1); MONO % 6.6 % (3.8-10.2); NEUT % 50.6 % (42.8-82.8); PLATELET COUNT 133 K/MM3 (134-434); RBC 4.75 M/mm3 (4.00-5.60); WHITE BLOOD COUNT 7.7 K/mm3 (4.0-10.0)
[2020-06-08] MEDS ORDERED: LACTATED RINGERS SOLUTION 1000 ML INFUS.BAG IV ONE (21:30)
[2020-06-08 21:42] LABS: CHLORIDE 110 mmol/L (98-107); SODIUM 142 mmol/L (136-145)
[2020-06-08 21:45] LABS: ANION GAP 5 MMOL/L (8-16); BLOOD UREA NITROGEN 20.5 mg/dL (7-18); CALCIUM 8.5 mg/dL (8.5-10.1); CO2 28 mmol/L (21-32)
[2020-06-08 21:46] LABS: ALBUMIN 3.8 g/dl (3.4-5.0); GLUCOSE,RANDOM 127 mg/dL (74-106)
[2020-06-08 21:48] LABS: CREATININE 0.9 mg/dL (0.55-1.3)
[2020-06-08 21:49] LABS: SGOT/AST 17 U/L (15-37); SGPT/ALT 17 U/L (13-61)
[2020-06-08 21:50] LABS: BILIRUBIN,TOTAL 0.4 mg/dL (0.2-1); TOT PROT 6.5 g/dl (6.4-8.2)
[2020-06-08 21:51] LABS: ALK PHOS 65 U/L (45-117)
[2020-06-09 00:58] VITALS: BP 126/96; PULSE 68; TEMP 98.1
[2020-06-09 01:21] LABS: MAGNESIUM 2.3 mg/dL (1.8-2.4)
== END 2020-06-09 00:58 | disposition home or self-care (01) ==
LOC: JER 20:16
DX: R00.2 Palpitations (principal)
CPT/HCPCS: 36415; 71046-TC-FY; 80053; 82550; 82553; 83735; 84443; 84484; 85025; 93005; 93010; 99285-25

== ENCOUNTER 2020-12-02 18:13 | Emergency (ER) | payer OTHER ==
[2020-12-02 18:21] VITALS: BP 124/90; PULSE 100; TEMP 98.4; BMI 31.5
[2020-12-02] MEDS ORDERED: IBUPROFEN 400 MG TABLET (FP) PO ONE ×2 (19:28→19:29)
== END 2020-12-02 20:03 | disposition home or self-care (01) ==
LOC: JER 18:13
DX: I80.202 Phlebitis and thrombophlebitis of unspecified deep vessels of left lower extremity (principal)
CPT/HCPCS: 99283-25

== ENCOUNTER 2021-06-02 04:28 | Day surgery (SDC) | payer OTHER ==
[2021-05-31 11:30] VITALS: BMI 31.5
[2021-06-02] MEDS ORDERED: DEXAMETHASONE SOD PHOSPHATE 4 MG/1 ML VIAL ONE (10:18)
[2021-06-02] MEDS ORDERED: KETOROLAC TROMETHAMINE 30 MG/1 ML VIAL ONE (10:18)
[2021-06-02] MEDS ORDERED: LIDOCAINE HCL 2% 100 MG/5 ML DISP.SYRIN ONE (10:18)
[2021-06-02] MEDS ORDERED: MIDAZOLAM HCL 2 MG/2 ML SINGLE DOSE VIAL ONE (10:19)
[2021-06-02] MEDS ORDERED: ROCURONIUM BROMIDE 50 MG/5 ML SYRINGE ONE (10:19)
[2021-06-02] MEDS ORDERED: PROPOFOL 20 ML ONE (10:19)
[2021-06-02] MEDS ORDERED: SUCCINYLCHOLINE CHLORIDE 200 MG/10 ML SYRINGE ONE (10:19)
[2021-06-02] MEDS ORDERED: BUPIVACAINE HCL/PF 0.5% (5MG/ML) 10 ML VIAL ONE (10:59)
[2021-06-02] MEDS ORDERED: CLINDAMYCIN 600 MG PREMIX BAG IVPB ONE (11:45)
[2021-06-02] MEDS ORDERED: NEOSTIGMINE METHYLSULFATE 0.5 MG/ML - 10 ML MDV ONE (13:03)
[2021-06-02] MEDS ORDERED: GLYCOPYRROLATE 0.2 MG/1 ML VIAL ONE ×3 (13:03)
[2021-06-02] MEDS ORDERED: ONDANSETRON 4 MG/2 ML VIAL IVPUSH PRN (13:14)
[2021-06-02] MEDS ORDERED: LACTATED RINGERS SOLUTION 1,000 ML IV SCH (13:15)
[2021-06-02 15:56] VITALS: BP 115/73; PULSE 68; TEMP 98
== END 2021-06-02 15:45 | disposition home or self-care (01) ==
LOC: JASU-SURG 04:28
PROVIDERS: ATTEND Surgery
PROC: 8E0W4CZ Robotic Assisted Procedure of Trunk Region, Percutaneous Endoscopic Approach (ICD-10-PCS; 2021-06-02)
PROC: 0YU54JZ Supplement Right Inguinal Region with Synthetic Substitute, Percutaneous Endoscopic Approach (ICD-10-PCS; principal; 2021-06-02 10:45)
DX: K40.31 Unilateral inguinal hernia, with obstruction, without gangrene, recurrent (principal); K66.0 Peritoneal adhesions (postprocedural) (postinfection)
CPT/HCPCS: 49651; S2900; 94760

== ENCOUNTER 2021-10-26 07:13 | Emergency (ER) | payer OTHER ==
[2021-10-26 07:24] VITALS: BP 115/76; PULSE 93; RESP 20; TEMP 97.5; BMI 29.8
[2021-10-26] MEDS ORDERED: ACETAMINOPHEN 1000 MG/100 ML BAG IVPB ONE (09:13)
[2021-10-26] MEDS ORDERED: ACETAMINOPHEN INJECTION 100 ML IVPB ONE (09:23)
[2021-10-26 10:51] LABS: BASO % 0.7 % (0-2.0); EOS % 1.7 % (0-4.5); HEMATOCRIT 45.8 % (35.4-49); HEMOGLOBIN 15.6 GM/dL (11.7-16.9); LYMPH % 27.8 % (8-40); MCH 29.6 pg (25.7-33.7); MEAN CELL VOLUME 87.2 fl (80-96); MEAN PLT VOLUME 9.2 fl (7.5-11.1); MONO % 5.1 % (3.8-10.2); NEUT % 64.7 % (42.8-82.8); PLATELET COUNT 161 10^3/uL (134-434); RBC 5.26 M/mm3 (4.00-5.60)
[2021-10-26 11:00] LABS: INR 1.03 (0.83-1.09); PROTHROMBIN TIME (PATIENT) 11.9 SEC (9.7-13.0)
[2021-10-26 11:10] LABS: BLOOD UREA NITROGEN 7.9 mg/dL (7-18)
[2021-10-26 11:14] LABS: CREATININE 0.8 mg/dL (0.55-1.3)
[2021-10-26 11:15] LABS: BILIRUBIN,TOTAL 0.9 mg/dL (0.2-1); TOT PROT 6.8 g/dl (6.4-8.2)
== END 2021-10-26 14:24 | disposition home or self-care (01) ==
LOC: JER 07:13
PROC: 3E033NZ Introduction of Analgesics, Hypnotics, Sedatives into Peripheral Vein, Percutaneous Approach (ICD-10-PCS; principal; 2021-10-26)
DX: R07.9 Chest pain, unspecified (principal)
CPT/HCPCS: 36415; 71275-TC; 80053; 84484; 85025; 85610; 85730; 93005; 93010; 99285-25

== ENCOUNTER 2022-05-27 05:03 | Inpatient (IN) | payer OTHER ==
[2022-05-27 05:19] VITALS: BMI 28.7
[2022-05-27] MEDS ORDERED: morphine CARPU-JECT 4 MG/1 ML DISP.SYRIN IVPUSH ONE (05:41)
[2022-05-27] MEDS ORDERED: morphine CARPU-JECT 2 MG/1 ML DISP.SYRIN IVPUSH ONE (06:08)
[2022-05-27 07:04] LABS: BASO % 0.5 % (0-2.0); EOS % 1.5 % (0-4.5); HEMATOCRIT 41.6 % (35.4-49); HEMOGLOBIN 14.5 GM/dL (11.7-16.9); LYMPH % 12.3 % (8-40); MCH 29.7 pg (25.7-33.7); MCHC 34.8 g/dl (32.0-35.9); MEAN CELL VOLUME 85.5 fl (80-96); MEAN PLT VOLUME 10.5 fl (7.5-11.1); MONO % 5.7 % (3.8-10.2); PLATELET COUNT 137 10^3/uL (134-434); RBC 4.87 M/mm3 (4.00-5.60); RDW 13.1 % (11.9-15.9); WHITE BLOOD COUNT 9.3 K/mm3 (4.0-10.0)
[2022-05-27] MEDS ORDERED: ACETAMINOPHEN 1000 MG/100 ML BAG IVPB ONE (07:55)
[2022-05-27 08:06] LABS: ALBUMIN 3.6 g/dl (3.4-5.0); BILIRUBIN,TOTAL 0.7 mg/dL (0.2-1); BLOOD UREA NITROGEN 13.2 mg/dL (7-18); CALCIUM 8.4 mg/dL (8.5-10.1); CREATININE 0.7 mg/dL (0.55-1.3); TOT PROT 6.6 g/dl (6.4-8.2)
[2022-05-27] MEDS ORDERED: KETOROLAC TROMETHAMINE 15 MG/ML VIAL IVPUSH ONE (08:08)
[2022-05-27] MEDS ORDERED: ACETAMINOPHEN INJECTION 100 ML IVPB ONE (09:21)
[2022-05-27] MEDS ORDERED: KETOROLAC TROMETHAMINE 15 MG/ML VIAL ONE (09:22)
[2022-05-27] MEDS ORDERED: MEROPENEM 1 GM in DEXTROSE 5%-WATER 100 ML IVPB ONE (11:11)
[2022-05-27] MEDS ORDERED: CIPROFLOXACIN 400 MG/D5W 400 MG/200 ML IVPB IVPB ONE (11:15)
[2022-05-27 12:13] LABS: INR 1.15 (0.83-1.09); PROTHROMBIN TIME (PATIENT) 13.3 SEC (9.7-13.0)
[2022-05-27 12:16] LABS: ACTIVATED PTT 31.9 SECONDS (25.2-36.5)
[2022-05-27 13:54] LABS: PH,URINE 5.5 (5.0-8.0); URINE APPEARANCE CLEAR; URINE BILIRUBIN NEGATIVE (NEGATIVE); URINE COLOR YELLOW; URINE GLUCOSE (UA) NEGATIVE (NEGATIVE); URINE KETONE NEGATIVE (NEGATIVE); URINE LEUK ESTERASE NEGATIVE (NEGATIVE); URINE NITRITE NEGATIVE (NEGATIVE); URINE PROTEIN TRACE (NEGATIVE); URINE UROBILINOGEN 0.2 mg/dL (0.2-1.0)
[2022-05-27] MEDS ORDERED: ALBUTEROL SO4 HFA INHALER IH PRN (15:44)
[2022-05-27] MEDS ORDERED: clonazePAM 0.5 MG TABLET PO PRN (15:44)
[2022-05-27] MEDS ORDERED: ACETAMINOPHEN 325 MG TABLET (FP) PO PRN (15:45)
[2022-05-27] MEDS ORDERED: clonazePAM 0.5 MG TABLET ONE (18:36)
[2022-05-28 07:44] LABS: BASO % 0.7 % (0-2.0); EOS % 3.3 % (0-4.5); HEMATOCRIT 39.5 % (35.4-49); HEMOGLOBIN 13.8 GM/dL (11.7-16.9); LYMPH % 31.4 % (8-40); MCH 29.6 pg (25.7-33.7); MCHC 34.8 g/dl (32.0-35.9); MEAN CELL VOLUME 84.9 fl (80-96); MONO % 6.6 % (3.8-10.2); PLATELET COUNT 134 10^3/uL (134-434); RBC 4.65 M/mm3 (4.00-5.60); RDW 12.9 % (11.9-15.9); WHITE BLOOD COUNT 5.6 K/mm3 (4.0-10.0)
[2022-05-28] MEDS ORDERED: LORazepam 2 MG/ML SDV VIAL IVPUSH ONE (08:58)
[2022-05-28] MEDS ORDERED: PARoxetine HCL 10 MG TABLET ONE (09:15)
[2022-05-28 09:32] LABS: ALBUMIN 3.3 g/dl (3.4-5.0); BLOOD UREA NITROGEN 11.6 mg/dL (7-18); CALCIUM 8.6 mg/dL (8.5-10.1)
[2022-05-28 09:35] LABS: CREATININE 0.7 mg/dL (0.55-1.3)
[2022-05-28 09:37] LABS: BILIRUBIN,TOTAL 1.2 mg/dL (0.2-1); TOT PROT 6.2 g/dl (6.4-8.2)
[2022-05-28] MEDS ORDERED: PARoxetine HCL 10 MG TABLET PO SCH (10:00)
[2022-05-28] MEDS ORDERED: PROPOFOL 20 ML ONE ×2 (10:51→11:08)
[2022-05-28] MEDS ORDERED: MIDAZOLAM HCL 2 MG/2 ML SINGLE DOSE VIAL ONE ×2 (10:51→11:00)
[2022-05-28] MEDS ORDERED: SUCCINYLCHOLINE CHLORIDE 200 MG/10 ML SYRINGE ONE (11:08)
[2022-05-28] MEDS ORDERED: DOCUSATE SODIUM 100 MG CAPSULE (FP) PO SCH (11:15)
[2022-05-28] MEDS ORDERED: clonazePAM 0.5 MG TABLET PO PRN (11:29)
[2022-05-28] MEDS ORDERED: ALBUTEROL SO4 HFA INHALER IH PRN (11:29)
[2022-05-28] MEDS ORDERED: ACETAMINOPHEN 325 MG TABLET (FP) PO PRN (11:29)
[2022-05-28 12:21] VITALS: RESP 20
[2022-05-28 12:32] VITALS: PULSE 62
[2022-05-28 13:24] VITALS: BP 115/72; TEMP 97.3
[2022-05-28] MEDS ORDERED: ENOXAPARIN NA (PORCINE) 40 MG/0.4 ML DISP.SYRIN SQ SCH ×2 (20:00)
[2022-05-29] MEDS ORDERED: PARoxetine HCL 10 MG TABLET PO SCH (10:00)
== END 2022-05-28 11:40 | disposition home or self-care (01) | DRG 393 ==
LOC: JER 05:03 → OBSVTOIN 11:44 → JERBED 11:44 → UNDOADMOB 11:44 → INTOOBSV 11:44 → JERBED 15:45 → OBSVTOIN 15:45 → UNDODISIN 05-28 11:40
PROVIDERS: ADMIT Internal Medicine; ATTEND Internal Medicine
PROC: 0DJD7ZZ Inspection of Lower Intestinal Tract, Via Natural or Artificial Opening (ICD-10-PCS; principal; 2022-05-28 10:00)
DX: K61.1 Rectal abscess (principal); U07.1 COVID-19; F41.0 Panic disorder [episodic paroxysmal anxiety]
CPT/HCPCS: 36415; 71046-TC-FY; 72193-TC; 80053; 81003; 85025; 85610; 85730; 86850; 86900; 86901; 87086; 93005; 93010; 94760; 99285-25; C9803-CS; U0003; U0005

== ENCOUNTER 2023-12-05 04:16 | Emergency (ER) | payer OTHER ==
[2023-12-05 04:24] VITALS: BP 132/100; PULSE 85; RESP 16; TEMP 98.2; BMI 35.6
[2023-12-05] MEDS ORDERED: ACETAMINOPHEN INJECTION 100 ML ONE (04:59)
[2023-12-05] MEDS ORDERED: MAG HYDROX/AL HYDROX/SIMETH 30 ML UNIT-DOSE CUP ONE (05:00)
[2023-12-05] MEDS: MAG HYDROX/AL HYDROX/SIMETH 30 ML UNIT-DOSE CUP PO ONE (05:52)
[2023-12-05] MEDS: ACETAMINOPHEN 1000 MG/100 ML BAG IVPB ONE (05:52)
[2023-12-05] MEDS ORDERED: FAMOTIDINE 20 MG/50 ML IVPB 20 MG/50 ML MG IVPB SCH ×2 (05:57→10:00)
[2023-12-05] MEDS: FAMOTIDINE 20 MG/50 ML IVPB 20 MG/50 ML MG IVPB ONE (06:13)
[2023-12-05 06:16] LABS: BASO % 0.5 % (0-2.0); EOS % 1.9 % (0-4.5); HEMATOCRIT 45.9 % (35.4-49); HEMOGLOBIN 15.6 GM/dL (11.7-16.9); MCH 29.3 pg (25.7-33.7); MEAN CELL VOLUME 86.2 fl (80-96); MEAN PLT VOLUME 9.2 fl (7.5-11.1); MONO % 5.9 % (3.8-10.2); NEUT % 74.7 % (42.8-82.8); PLATELET COUNT 142 10^3/uL (134-434); RBC 5.32 M/mm3 (4.00-5.60); RDW 13.3 % (11.9-15.9); WHITE BLOOD COUNT 12.2 K/mm3 (4.0-10.0)
[2023-12-05 06:32] LABS: POTASSIUM 3.8 mmol/L (3.5-5.1)
[2023-12-05 06:34] LABS: CALCIUM 8.9 mg/dL (8.5-10.1)
[2023-12-05 06:35] LABS: ALBUMIN 3.5 g/dl (3.4-5.0); BLOOD UREA NITROGEN 10.7 mg/dL (7-18)
[2023-12-05 06:39] LABS: BILIRUBIN,TOTAL 0.6 mg/dL (0.2-1); TOT PROT 6.4 g/dl (6.4-8.2)
[2023-12-05] MEDS ORDERED: morphine SULFATE 4 MG/ML VIAL ONE (06:57)
[2023-12-05] MEDS: morphine CARPU-JECT 2 MG/1 ML DISP.SYRIN IVPUSH ONE (07:07)
[2023-12-05] MEDS ORDERED: SIMETHICONE 80 MG TAB.CHEW (FP) ONE (08:38)
[2023-12-05] MEDS: SIMETHICONE 80 MG TAB.CHEW (FP) PO ONE (08:39)
[2023-12-05] MEDS ORDERED: SUCRALFATE 1 GM TABLET (FP) ONE (09:44)
[2023-12-05] MEDS: SUCRALFATE 1 GM TABLET (FP) PO ONE (09:45)
== END 2023-12-05 10:20 | disposition home or self-care (01) ==
LOC: JER 04:16
PROC: 3E033GC Introduction of Other Therapeutic Substance into Peripheral Vein, Percutaneous Approach (ICD-10-PCS; principal; 2023-12-05)
PROC: 3E033NZ Introduction of Analgesics, Hypnotics, Sedatives into Peripheral Vein, Percutaneous Approach (ICD-10-PCS; 2023-12-05)
PROC: 3E033NZ Introduction of Analgesics, Hypnotics, Sedatives into Peripheral Vein, Percutaneous Approach (ICD-10-PCS; 2023-12-05)
DX: K52.9 Noninfective gastroenteritis and colitis, unspecified (principal); K59.00 Constipation, unspecified; R10.13 Epigastric pain; R14.0 Abdominal distension (gaseous)
CPT/HCPCS: 36415; 71045-TC-FY; 71275-TC; 74174-TC; 76705-TC; 80053; 83690; 84484; 85025; 93005; 93010; 99285-25; J0131; Q9967